=== PATIENT | male | born 1975 | race Caucasian/White ===

== ENCOUNTER 2022-01-02 15:22 | Emergency (ER) | payer OTHER, SELFPAY ==
[2022-01-02] MEDS ORDERED: Fluorescein Opthalmic Strip ONE (16:25)
[2022-01-02] MEDS ORDERED: Proparacaine 0.5% Opth 15 ML BOT ONE (16:25)
== END 2022-01-02 17:54 ==
LOC: ERS 15:22 → EEVIPCON 15:22 → ERS 17:54
DX: H21.02 Hyphema, left eye (principal)
CPT/HCPCS: 99283